=== PATIENT | male | born 1975 | race Hispanic/Latino ===

== ENCOUNTER 2021-09-03 18:56 | Inpatient (IN) | payer SELFPAY ==
[~2021-09-03] VITALS: Ht 165.1 cm; Wt 169.7 kg
[2021-09-03] MEDS ORDERED: FUROSEMIDE 40MG VIAL ONE (20:27)
[2021-09-03 20:30] LABS: BASOPHILS % (AUTO) 0.5 % (0.0-5.0); EOSINOPHILS % (AUTO) 4.4 % (0.0-8.0); HEMATOCRIT 43.8 % (42-54); LYMPHOCYTES % (AUTO) 19.6 % (21.0-51.0); MEAN CORPUSCULAR HEMOGLOBIN 21.8 pg (27.0-33.0); MEAN CORPUSCULAR HGB CONC 27.2 g/dL (32.0-36.0); MEAN CORPUSCULAR VOLUME 80.4 fL (79-99); NEUTROPHILS % (AUTO) 67.8 % (40.0-77.0); NUCLEATED RED BLOOD CELLS 0.1 % (0.0-0.19); PLATELET COUNT (AUTO) 348 K/uL (130-400); RED BLOOD CELL COUNT(AUTO) 5.45 MIL/uL (4.50-6.20); RED CELL DISTRIBUTION WIDTH 14.6 % (11.0-15.5); WHITE BLOOD COUNT (AUTO) 15.1 K/uL (4.8-10.8)
[2021-09-03] MEDS ORDERED: FUROSEMIDE 40MG VIAL IVP ONE (20:30)
[2021-09-03 20:43] LABS: POTASSIUM 3.9 mmol/L (3.5-5.1)
[2021-09-03 20:49] LABS: B-TYPE NATRIURETIC PEPTIDE 6 pg/mL (0-100)
[2021-09-03 20:55] LABS: ALBUMIN 3.2 g/dL (3.5-5.0); BILIRUBIN,TOTAL 0.2 mg/dL (0.2-1.0); MAGNESIUM 2.2 mg/dL (1.80-2.40); THYROID STIMULATING HORMONE 2.09 uIU/mL (0.36-3.74); TOTAL PROTEIN, SERUM 7.2 g/dL (6.0-8.3)
[2021-09-03 21:15] LABS: APPEARANCE,URINE Clear (CLEAR); BILIRUBIN,URINE Negative (NEGATIVE); COLOR,URINE Yellow (YELLOW); GLUCOSE, URINE (UA) Negative (NEGATIVE); KETONES,URINE Negative (NEGATIVE); LEUKOCYTE ESTERASE ,URINE Negative (NEGATIVE); NITRATE,URINE Negative (NEGATIVE); OCCULT BLOOD,URINE Negative (NEGATIVE); PROTEIN,URINE Negative (NEGATIVE)
[2021-09-03 21:22] LABS: AMPHET/METH SCREEN,URINE NEGATIVE (NEGATIVE); BARBITURATE SCREEN, URINE NEGATIVE (NEGATIVE); BENZODIAZEPINES SCREEN,URINE NEGATIVE (NEGATIVE); CANNABINOID SCREEN,URINE NEGATIVE (NEGATIVE); COCAINE SCREEN,URINE POSITIVE (NEGATIVE); OPIATE SCREEN,URINE NEGATIVE (NEGATIVE); PHENCYCLIDINE SCREEN,URINE NEGATIVE (NEGATIVE)
[2021-09-03] MEDS ORDERED: CEFTRIAXONE 1G VIAL IVP ONE (22:30)
[2021-09-03] MEDS ORDERED: AZITHROMYCIN 500MG VIAL IVPB ONE (22:30)
[2021-09-03] MEDS ORDERED: ASPIRIN 325MG TAB PO ONE (22:30)
[2021-09-03] MEDS ORDERED: AZITHROMYCIN 500MG+NS 250ML 250 ML IV ONE (23:29)
[2021-09-03] MEDS ORDERED: ACETAMINOPHEN 325 MG TAB PO PRN (23:30)
[2021-09-03] MEDS ORDERED: ONDANSETRON 4MG INJ IV PRN (23:30)
[2021-09-03] MEDS: NITROGLYCERIN 1GM OINT 1 INCH/1GM TD SCH (23:38)
[2021-09-04] MEDS ORDERED: SODIUM CHLORIDE 3% FOR INHALATION 4 ML/AMP VIAL.NEB IH ONE ×2 (03:19→06:57)
[2021-09-04] MEDS ORDERED: AZITHROMYCIN 500MG VIAL IVPB SCH (07:00)
[2021-09-04] MEDS ORDERED: AZITHROMYCIN 500MG+NS 250ML 250 ML IV SCH (07:00)
[2021-09-04] MEDS ORDERED: CEFTRIAXONE 1G VIAL IVP SCH (07:00)
[2021-09-04] MEDS ORDERED: 0.9% NACL 250ML IVPB SCH (07:00)
[2021-09-04 07:47] LABS: BASOPHILS % (AUTO) 0.5 % (0.0-5.0); EOSINOPHILS % (AUTO) 4.6 % (0.0-8.0); HEMATOCRIT 45.1 % (42-54); LYMPHOCYTES % (AUTO) 15.3 % (21.0-51.0); MEAN CORPUSCULAR HEMOGLOBIN 21.8 pg (27.0-33.0); MEAN CORPUSCULAR HGB CONC 26.8 g/dL (32.0-36.0); MEAN CORPUSCULAR VOLUME 81.4 fL (79-99); MONOCYTES % (AUTO) 7.5 % (3.0-13.0); NEUTROPHILS % (AUTO) 70.8 % (40.0-77.0); PLATELET COUNT (AUTO) 358 K/uL (130-400); RED BLOOD CELL COUNT(AUTO) 5.54 MIL/uL (4.50-6.20); RED CELL DISTRIBUTION WIDTH 14.8 % (11.0-15.5); WHITE BLOOD COUNT (AUTO) 12.8 K/uL (4.8-10.8)
[2021-09-04 08:00] LABS: INR 1.02 (0.85-1.15); PROTHROMBIN TIME 11.1 SEC (9.6-11.6)
[2021-09-04 08:01] LABS: PARTIAL THROMBOPLASTIN TIME 29.3 SEC (26.3-35.5)
[2021-09-04] MEDS: NITROGLYCERIN 1GM OINT 1 INCH/1GM TD SCH ×3 (08:03→23:30)
[2021-09-04 08:06] LABS: CREATININE 1.1 mg/dL (0.5-1.5); PHOSPHORUS 4.6 mg/dL (2.5-4.9); POTASSIUM 4.3 mmol/L (3.5-5.1)
[2021-09-04 08:09] LABS: HEMOGLOBIN A1C 6.2 % (4.0-6.0)
[2021-09-04 08:44] LABS: MAGNESIUM 2.3 mg/dL (1.80-2.40)
[2021-09-04] MEDS: METOPROLOL TARTRATE 25 MG TAB PO SCH ×2 (09:57→21:02)
[2021-09-04] MEDS: LISINOPRIL 10 MG TABLET PO SCH (09:57)
[2021-09-04] MEDS: FAMOTIDINE 20MG TAB PO SCH ×2 (09:57→21:02)
[2021-09-04] MEDS: FUROSEMIDE 40MG VIAL IVP SCH ×2 (09:57→21:01)
[2021-09-04] MEDS: ASPIRIN 81 MG EC TAB PO SCH (09:57)
[2021-09-04] MEDS: HEPARIN 5,000 UNIT VIAL SQ SCH ×3 (09:58→21:03)
[2021-09-04] MEDS ORDERED: DEXTROSE 50%-WATER 50 ML DISP.SYRIN IV PRN (10:30)
[2021-09-04] MEDS ORDERED: GLUCAGON 1MG KIT 1 MG ML IM PRN (10:30)
[2021-09-04] MEDS: INSULIN HUMULIN R 100 UNIT/ML 3ML SQ SCH ×3 (11:30→21:00)
[2021-09-04] MEDS ORDERED: ACET-2743 PO (18:01)
[2021-09-04 20:00] VITALS: BP 161/74
[2021-09-04] MEDS: AZITHROMYCIN 500MG+NS 250ML 250 ML IV SCH (20:59)
[2021-09-04] MEDS: CEFTRIAXONE 1G VIAL IVP SCH (21:01)
[2021-09-05] VITALS: BP 123/65
[2021-09-05 04:00] VITALS: BP 145/65
[2021-09-05 05:38] LABS: BASOPHILS % (AUTO) 0.3 % (0.0-5.0); EOSINOPHILS % (AUTO) 5.4 % (0.0-8.0); HEMATOCRIT 40.2 % (42-54); LYMPHOCYTES % (AUTO) 13.5 % (21.0-51.0); MEAN CORPUSCULAR HEMOGLOBIN 21.8 pg (27.0-33.0); MEAN CORPUSCULAR HGB CONC 27.6 g/dL (32.0-36.0); MONOCYTES % (AUTO) 7.4 % (3.0-13.0); PLATELET COUNT (AUTO) 343 K/uL (130-400); RED BLOOD CELL COUNT(AUTO) 5.09 MIL/uL (4.50-6.20); RED CELL DISTRIBUTION WIDTH 14.7 % (11.0-15.5)
[2021-09-05 05:46] LABS: CREATININE 1.2 mg/dL (0.5-1.5); POTASSIUM 3.9 mmol/L (3.5-5.1)
[2021-09-05] MEDS: NITROGLYCERIN 1GM OINT 1 INCH/1GM TD SCH ×3 (06:38→23:30)
[2021-09-05] MEDS: INSULIN HUMULIN R 100 UNIT/ML 3ML SQ SCH ×4 (06:38→21:00)
[2021-09-05 07:35] VITALS: BP 139/78
[2021-09-05] MEDS: FAMOTIDINE 20MG TAB PO SCH ×2 (09:15→21:06)
[2021-09-05] MEDS: ASPIRIN 81 MG EC TAB PO SCH (09:15)
[2021-09-05] MEDS: FUROSEMIDE 40MG VIAL IVP SCH ×2 (09:15→21:06)
[2021-09-05] MEDS: LISINOPRIL 10 MG TABLET PO SCH (09:16)
[2021-09-05] MEDS: METOPROLOL TARTRATE 25 MG TAB PO SCH ×2 (09:16→21:06)
[2021-09-05] MEDS: HEPARIN 5,000 UNIT VIAL SQ SCH ×3 (09:27→21:07)
[2021-09-05 11:15] VITALS: BP 134/72
[2021-09-05 15:43] VITALS: BP 149/74
[2021-09-05 19:00] VITALS: BP 145/70
[2021-09-05] MEDS: CEFTRIAXONE 1G VIAL IVP SCH (21:05)
[2021-09-05] MEDS: AZITHROMYCIN 500MG+NS 250ML 250 ML IV SCH (21:06)
[2021-09-06] VITALS (7 sets, daily range): BP systolic 105–154; BP diastolic 66–80
[2021-09-06] MEDS: INSULIN HUMULIN R 100 UNIT/ML 3ML SQ SCH ×4 (06:38→21:00)
[2021-09-06] MEDS: NITROGLYCERIN 1GM OINT 1 INCH/1GM TD SCH (08:04)
[2021-09-06] MEDS: ASPIRIN 81 MG EC TAB PO SCH (09:21)
[2021-09-06] MEDS: METOPROLOL TARTRATE 25 MG TAB PO SCH ×2 (09:21→21:15)
[2021-09-06] MEDS: CEFTRIAXONE 2GM VIAL IVP SCH (09:21)
[2021-09-06] MEDS: FUROSEMIDE 40MG VIAL IVP SCH (09:21)
[2021-09-06] MEDS: FAMOTIDINE 20MG TAB PO SCH ×2 (09:22→21:16)
[2021-09-06] MEDS: HEPARIN 5,000 UNIT VIAL SQ SCH (09:29)
[2021-09-06 09:30] LABS: BASOPHILS % (AUTO) 0.5 % (0.0-5.0); EOSINOPHILS % (AUTO) 6.3 % (0.0-8.0); HEMATOCRIT 38.6 % (42-54); LYMPHOCYTES % (AUTO) 17.7 % (21.0-51.0); MEAN CORPUSCULAR HEMOGLOBIN 21.9 pg (27.0-33.0); MEAN CORPUSCULAR HGB CONC 28.5 g/dL (32.0-36.0); MEAN CORPUSCULAR VOLUME 76.7 fL (79-99); MONOCYTES % (AUTO) 7.7 % (3.0-13.0); NEUTROPHILS % (AUTO) 66.6 % (40.0-77.0); PLATELET COUNT (AUTO) 335 K/uL (130-400); RED BLOOD CELL COUNT(AUTO) 5.03 MIL/uL (4.50-6.20); RED CELL DISTRIBUTION WIDTH 15.1 % (11.0-15.5); WHITE BLOOD COUNT (AUTO) 10.5 K/uL (4.8-10.8)
[2021-09-06 10:02] LABS: ALBUMIN 2.9 g/dL (3.5-5.0); BILIRUBIN,TOTAL 0.4 mg/dL (0.2-1.0); CREATININE 1.1 mg/dL (0.5-1.5); MAGNESIUM 2.4 mg/dL (1.80-2.40); POTASSIUM 3.8 mmol/L (3.5-5.1); TOTAL PROTEIN, SERUM 6.7 g/dL (6.0-8.3)
[2021-09-06 10:34] LABS: ABG BASE EXCESS 4.3 mmol/L (-2.0-3.0); ABG HCO3 30.3 mmol/L (21.0-28.0); ABG OXYGEN SATURATION 88.5 % (95.0-99.0); ABG PCO2 50 mmHg (35-48)
[2021-09-06] MEDS: FUROSEMIDE 40MG VIAL IV SCH ×2 (11:30→22:32)
[2021-09-06] MEDS ORDERED: PERFLUTREN PROTEIN-A MICROSPHR 0.22 MG/ML VIAL IV ONE (13:00)
[2021-09-06] MEDS ORDERED: 0.9% NACL 250ML 250 ML ONE (20:58)
[2021-09-06] MEDS: AZITHROMYCIN 500MG+NS 250ML 250 ML IV SCH (21:16)
[2021-09-07 03:27] VITALS: BP 134/58
[2021-09-07 06:47] LABS: BASOPHILS % (AUTO) 0.5 % (0.0-5.0); EOSINOPHILS % (AUTO) 7.4 % (0.0-8.0); HEMATOCRIT 40.6 % (42-54); LYMPHOCYTES % (AUTO) 15.3 % (21.0-51.0); MEAN CORPUSCULAR HEMOGLOBIN 21.8 pg (27.0-33.0); MEAN CORPUSCULAR HGB CONC 27.6 g/dL (32.0-36.0); MONOCYTES % (AUTO) 8.1 % (3.0-13.0); NEUTROPHILS % (AUTO) 67.8 % (40.0-77.0); PLATELET COUNT (AUTO) 350 K/uL (130-400); RED BLOOD CELL COUNT(AUTO) 5.14 MIL/uL (4.50-6.20); RED CELL DISTRIBUTION WIDTH 14.8 % (11.0-15.5); WHITE BLOOD COUNT (AUTO) 11.1 K/uL (4.8-10.8)
[2021-09-07 06:58] LABS: CREATININE 1.1 mg/dL (0.5-1.5); MAGNESIUM 2.5 mg/dL (1.80-2.40); POTASSIUM 4.2 mmol/L (3.5-5.1)
[2021-09-07 07:20] VITALS: BP 133/64
[2021-09-07] MEDS: INSULIN HUMULIN R 100 UNIT/ML 3ML SQ SCH ×3 (07:30→16:30)
[2021-09-07] MEDS ORDERED: ENOXAPARIN SODIUM 40 MG/0.4 ML SYRINGE SQ SCH (09:00)
[2021-09-07] MEDS: ASPIRIN 81 MG EC TAB PO SCH (09:33)
[2021-09-07] MEDS: CEFTRIAXONE 2GM VIAL IVP SCH (09:33)
[2021-09-07] MEDS: FAMOTIDINE 20MG TAB PO SCH (09:33)
[2021-09-07] MEDS: METOPROLOL TARTRATE 25 MG TAB PO SCH (09:33)
[2021-09-07 11:20] VITALS: BP 138/71
[2021-09-07] MEDS: FUROSEMIDE 40MG VIAL IV SCH (12:32)
[2021-09-07 15:10] VITALS: BP 178/81
[2021-09-07] MEDS ORDERED: AEC81 PO (16:45)
[2021-09-07] MEDS ORDERED: FURO20TA6 PO (16:45)
[2021-09-07] MEDS ORDERED: METO25 PO (16:45)
[2021-09-07] MEDS ORDERED: LISI10TA24 PO (16:45)
== END 2021-09-07 18:00 | disposition home or self-care (01) | DRG 193 ==
LOC: EDH 18:56 → EDHIP 18:57 → 3BH 09-04 17:42
PROVIDERS: ADMIT Hospitalist; ATTEND Hospitalist
PROC: 5A09357 Assistance with Respiratory Ventilation, Less than 24 Consecutive Hours, Continuous Positive Airway Pressure (ICD-10-PCS; principal; 2021-09-04)
PROC: 5A09357 Assistance with Respiratory Ventilation, Less than 24 Consecutive Hours, Continuous Positive Airway Pressure (ICD-10-PCS; 2021-09-05)
PROC: 5A09357 Assistance with Respiratory Ventilation, Less than 24 Consecutive Hours, Continuous Positive Airway Pressure (ICD-10-PCS; 2021-09-06)
DX: J15.9 Unspecified bacterial pneumonia (principal); J96.90 Respiratory failure, unspecified, unspecified whether with hypoxia or hypercapnia; J81.1 Chronic pulmonary edema; Z68.44 Body mass index [BMI] 60.0-69.9, adult; E66.2 Morbid (severe) obesity with alveolar hypoventilation; L03.115 Cellulitis of right lower limb; F14.10 Cocaine abuse, uncomplicated; I16.0 Hypertensive urgency; Z20.822 Contact with and (suspected) exposure to COVID-19; S91.002A Unspecified open wound, left ankle, initial encounter; I27.81 Cor pulmonale (chronic); E11.9 Type 2 diabetes mellitus without complications; I27.20 Pulmonary hypertension, unspecified; I50.9 Heart failure, unspecified; I11.0 Hypertensive heart disease with heart failure; Y93.89 Activity, other specified; Y92.89 Other specified places as the place of occurrence of the external cause; Y99.8 Other external cause status; Z72.0 Tobacco use; Z91.19 Patient's noncompliance with other medical treatment and regimen
CPT/HCPCS: 36415; 36600; 71045; 71046; 80048; 80053; 80061; 80305; 81003; 82803; 82948; 83036; 83605; 83690; 83735; 83880; 84100; 84145; 84443; 84484; 85025; 85378; 85610; 85730; 86140; 87040; 87071; 87077; 87186; 87205; 87635; 93005; 93306; 93970; 94640; 94660; G0378; J0456; J0696; J1644; J1650; J1940; J7050